=== PATIENT | male | born 2005 | race Hispanic/Latino ===

== ENCOUNTER 2023-08-27 00:21 | Emergency (ER) | payer SELFPAY ==
[2023-08-27] MEDS ORDERED: Acetaminophen 500 MG TAB ONE (01:07)
== END 2023-08-27 01:35 | disposition home or self-care (01) ==
LOC: MADERS 00:21
DX: S80.11XA Contusion of right lower leg, initial encounter (principal); S00.33XA Contusion of nose, initial encounter; F43.10 Post-traumatic stress disorder, unspecified; F17.210 Nicotine dependence, cigarettes, uncomplicated; F17.290 Nicotine dependence, other tobacco product, uncomplicated; V47.6XXA Car passenger injured in collision with fixed or stationary object in traffic accident, initial encounter

== ENCOUNTER 2024-10-08 17:26 | Emergency (ER) | payer SELFPAY ==
[~2024-10-08 17:26] MED LIST: Iopamidol 370 76% 100 ML VIAL ONE
[2024-10-08] MEDS ORDERED: Ondansetron PF 4 MG/2 ML Vial ONE ×3 (17:59→19:40)
[2024-10-08 18:33] LABS: Hematocrit 44.8 % (42.0-52.0); Hemoglobin 15.2 g/dL (14.0-18.0); Mean Corpuscular Hemoglobin 28.9 pg (27.0-31.0); Mean Corpuscular Volume 85.0 fl (78.0-98.0); Platelet Count 126 10x3/uL (130-400); Red Blood Cell (RBC) Count 5.27 mill/uL (4.70-6.10); White Blood Cell (WBC) Count 8.6 10x3/uL (4.8-10.8)
[2024-10-08 18:35] LABS: ALT (SGPT) 88 U/L (Less than 45); AST (SGOT) 48 U/L (11-34); Albumin 4.9 g/dL (3.1-4.5); Alkaline Phosphatase 45 U/L (40-110); Anion Gap 15 mmol/L (10-20); BUN (Urea Nitrogen) 9 mg/dL (8.9-20.6); Bilirubin, Total 0.9 mg/dL (0.3-1.2); Calc. Creatinine Clearance 0 mL/min (70-130); Calcium 9.4 mg/dL (7.8-10.44); Carbon Dioxide 23 mmol/L (22-29); Chloride 104 mmol/L (98-107); Globulin 2.2 g/dL (2.4-3.5); Glucose 98 mg/dL (70-105); Potassium 3.9 mmol/L (3.5-5.1); Sodium 138 mmol/L (136-145)
[2024-10-08 18:51] LABS: MDiff Complete? YES; Platelet Adequacy Comment Appears Decreased
[2024-10-08 19:40] LABS: Glucose, Urine (Dipstick) Negative (Negative); Leukocyte Negative (Negative); Protein, Urine (Dipstick) Negative (Neg-Trace); Specific Gravity, Urine 1.010 (1.005-1.030)
[2024-10-08 19:42] LABS: Bacteria/HPF Rare-Few HPF (None Seen); CAUTI Indications for Culture Pelvic or flank pain; RBC/HPF 0-3 HPF (0-3)
[2024-10-08 19:43] LABS: Urine Culture Reflex No No
== END 2024-10-08 20:10 | disposition home or self-care (01) ==
LOC: MADERS 17:26
DX: I88.0 Nonspecific mesenteric lymphadenitis (principal); F17.210 Nicotine dependence, cigarettes, uncomplicated; F17.290 Nicotine dependence, other tobacco product, uncomplicated
CPT/HCPCS: 74177; 80053; 81001; 83605; 85025; 87040; 87426; 96361; 96374; 96375; 96376; J2270; J2405; J7030; Q9967